=== PATIENT | female | born 1980 | race Hispanic/Latino ===

== ENCOUNTER 2018-05-31 10:46 | Observation (INO) | payer BC, MEDICAID ==
[~2018-05-31] VITALS: Ht 157.5 cm; Wt 97.5 kg
[2018-05-31] MEDS ORDERED: CELESTONE SOLUSPAN 6 MG/ML 5ML VIAL IM SCH (11:28)
[2018-05-31] MEDS ORDERED: PHARMACY COMMUNICATION MISC SCH (11:30)
[2018-05-31] MEDS: LACTATED RINGERS 1000ML 1,000 ML IV SCH ×2 (11:30→12:24)
[2018-05-31] MEDS ORDERED: LACTATED RINGERS 1000ML IV SCH (11:30)
[2018-05-31 11:45] LABS: BASOPHILS % (AUTO) 0.3 % (0.0-5.0); EOSINOPHILS % (AUTO) 0.5 % (0.0-8.0); HEMATOCRIT 32.9 % (36-48); LYMPHOCYTES % (AUTO) 22.2 % (21.0-51.0); MEAN CORPUSCULAR HEMOGLOBIN 29.1 pg (27.0-33.0); MEAN CORPUSCULAR HGB CONC 32.9 g/dL (32.0-36.0); MEAN CORPUSCULAR VOLUME 88.2 fL (79-99); MONOCYTES % (AUTO) 8.7 % (3.0-13.0); NEUTROPHILS % (AUTO) 68.3 % (40.0-77.0); PLATELET COUNT (AUTO) 152 K/uL (130-400); RED BLOOD CELL COUNT(AUTO) 3.73 MIL/uL (4.00-5.50); RED CELL DISTRIBUTION WIDTH 16.3 % (11.0-15.5); WHITE BLOOD COUNT (AUTO) 8.3 K/uL (4.8-10.8)
[2018-05-31 11:50] LABS: CREATININE 0.6 mg/dL (0.5-1.5); POTASSIUM 3.8 mmol/L (3.5-5.1)
[2018-05-31 11:54] LABS: ALBUMIN 2.3 g/dL (3.5-5.0); BILIRUBIN,TOTAL 0.2 mg/dL (0.2-1.0); TOTAL PROTEIN, SERUM 6.5 g/dL (6.0-8.3); URIC ACID 2.1 mg/dL (2.6-7.2)
[2018-05-31 12:01] LABS: INR 0.91 (0.85-1.15); PARTIAL THROMBOPLASTIN TIME 26.4 SEC (26.3-35.5); PROTHROMBIN TIME 9.6 SEC (9.6-11.6)
[2018-05-31 12:02] LABS: APPEARANCE,URINE Clear (CLEAR); BILIRUBIN,URINE Negative (NEGATIVE); COLOR,URINE Yellow (YELLOW); GLUCOSE, URINE (UA) TRACE mg/dL (NEGATIVE); KETONES,URINE Trace mg/dL (NEGATIVE); LEUKOCYTE ESTERASE ,URINE Moderate (NEGATIVE); NITRATE,URINE Negative (NEGATIVE); OCCULT BLOOD,URINE Negative (NEGATIVE); PROTEIN,URINE Trace (NEGATIVE); UROBILINOGEN,URINE 0.2 mg/dL (0.2-1.0)
[2018-05-31 12:20] LABS: BACTERIA,URINE Few /HPF (None Seen); RBC,URINE 0-1 /HPF (0-1)
[2018-05-31 12:21] LABS: MUCUS,URINE Few LPF (None Seen); SQUAMOUS EPITHELIAL CELL,UR Few /HPF (0-2)
[2018-05-31] MEDS ORDERED: TERBUTALINE SULFATE VIAL 1MG/ML SQ ONE (13:14)
[2018-05-31] MEDS ORDERED: TERBUTALINE SULFATE VIAL 1MG/ML SQ SCH (13:15)
== END 2018-05-31 15:21 | disposition home or self-care (01) ==
LOC: LDH 10:46
PROVIDERS: ADMIT Obstetrics & Gynecology; ATTEND Obstetrics & Gynecology
DX: O26.893 Other specified pregnancy related conditions, third trimester (principal); O09.523 Supervision of elderly multigravida, third trimester; R10.9 Unspecified abdominal pain; O99.283 Endocrine, nutritional and metabolic diseases complicating pregnancy, third trimester; E03.9 Hypothyroidism, unspecified; Z3A.34 34 weeks gestation of pregnancy
CPT/HCPCS: 36415; 80053; 81001; 84550; 85025; 85384; 85610; 85730; 96372 ×2; G0378 ×6; J0702; J3105; J7120; 96360; 96361

== ENCOUNTER 2018-06-01 13:07 | Observation (INO) | payer BC, MEDICAID ==
[~2018-06-01] VITALS: Ht 157.5 cm; Wt 97.5 kg
[2018-06-01] MEDS ORDERED: PHARMACY COMMUNICATION MISC SCH (13:15)
[2018-06-01] MEDS ORDERED: CELESTONE SOLUSPAN 6 MG/ML 5ML VIAL IM ONE (14:30)
== END 2018-06-01 13:25 | disposition home or self-care (01) ==
LOC: LDH 13:07
PROVIDERS: ADMIT Obstetrics & Gynecology; ATTEND Obstetrics & Gynecology
DX: O62.9 Abnormality of forces of labor, unspecified (principal); Z3A.34 34 weeks gestation of pregnancy
CPT/HCPCS: 96372; G0378 ×2

== ENCOUNTER 2018-06-04 03:59 | Observation (INO) | payer BC, MEDICAID ==
[~2018-06-04] VITALS: Ht 157.5 cm; Wt 100.7 kg
[2018-06-04 04:35] LABS: APPEARANCE,URINE Clear (CLEAR); BILIRUBIN,URINE Negative (NEGATIVE); COLOR,URINE Yellow (YELLOW); GLUCOSE, URINE (UA) >=1000 mg/dL (NEGATIVE); KETONES,URINE Negative (NEGATIVE); LEUKOCYTE ESTERASE ,URINE Moderate (NEGATIVE); NITRATE,URINE Negative (NEGATIVE); OCCULT BLOOD,URINE Negative (NEGATIVE); PROTEIN,URINE Negative (NEGATIVE)
[2018-06-04 04:46] LABS: AMPHET/METH SCREEN,URINE NEGATIVE (NEGATIVE); BARBITURATE SCREEN, URINE NEGATIVE (NEGATIVE); BENZODIAZEPINES SCREEN,URINE NEGATIVE (NEGATIVE); CANNABINOID SCREEN,URINE NEGATIVE (NEGATIVE); COCAINE SCREEN,URINE NEGATIVE (NEGATIVE); OPIATE SCREEN,URINE NEGATIVE (NEGATIVE); PHENCYCLIDINE SCREEN,URINE NEGATIVE (NEGATIVE)
[2018-06-04 04:53] LABS: RBC,URINE 0-1 /HPF (0-1)
[2018-06-04 04:54] LABS: BACTERIA,URINE Few /HPF (None Seen); SQUAMOUS EPITHELIAL CELL,UR Few /HPF (0-2); YEAST,URINE BUDDING None Seen /HPF (None Seen)
[2018-06-04] MEDS ORDERED: TERBUTALINE SULFATE VIAL 1MG/ML SQ SCH (05:15)
[2018-06-04] MEDS ORDERED: LACTATED RINGERS 1000ML 1,000 ML IV SCH (05:15)
== END 2018-06-04 08:00 | disposition home or self-care (01) ==
LOC: EDH 03:59 → LDH 04:00
PROVIDERS: ADMIT Obstetrics & Gynecology; ATTEND Obstetrics & Gynecology
DX: O62.9 Abnormality of forces of labor, unspecified (principal); O09.523 Supervision of elderly multigravida, third trimester; O26.893 Other specified pregnancy related conditions, third trimester; R11.0 Nausea; Z3A.34 34 weeks gestation of pregnancy; Z79.899 Other long term (current) drug therapy
CPT/HCPCS: 80305; 81001; 96372; 99283; G0378 ×4; J3105

== ENCOUNTER 2018-06-20 11:14 | Inpatient (IN) | payer BC, MEDICAID | END 2018-06-23 12:15 | disposition home or self-care (01) | LOC: LDH 11:14 → WSH 06-21 10:30 | PROC: 10D00Z1 Extraction of Products of Conception, Low, Open Approach (ICD-10-PCS; principal; 2018-06-20 13:44) | DX: O14.24 HELLP syndrome, complicating childbirth (principal); Z37.0 Single live birth; O24.429 Gestational diabetes mellitus in childbirth, unspecified control; O99.284 Endocrine, nutritional and metabolic diseases complicating childbirth; Z3A.37 37 weeks gestation of pregnancy; O09.523 Supervision of elderly multigravida, third trimester; R74.8 Abnormal levels of other serum enzymes ==

== ENCOUNTER 2018-08-25 05:39 | Day surgery (SDC) | payer BC, MEDICAID ==
[2018-08-24 14:00] VITALS: BP 94/54
[2018-08-24 14:16] LABS: BASOPHILS % (AUTO) 0.6 % (0.0-5.0); EOSINOPHILS % (AUTO) 1.6 % (0.0-8.0); HEMATOCRIT 33.5 % (36-48); LYMPHOCYTES % (AUTO) 33.4 % (21.0-51.0); MEAN CORPUSCULAR HEMOGLOBIN 27.9 pg (27.0-33.0); MEAN CORPUSCULAR HGB CONC 32.5 g/dL (32.0-36.0); MEAN CORPUSCULAR VOLUME 85.7 fL (79-99); MONOCYTES % (AUTO) 7.6 % (3.0-13.0); NEUTROPHILS % (AUTO) 56.8 % (40.0-77.0); PLATELET COUNT (AUTO) 217 K/uL (130-400); RED CELL DISTRIBUTION WIDTH 16.9 % (11.0-15.5); WHITE BLOOD COUNT (AUTO) 7.1 K/uL (4.8-10.8)
--- NOTE | 2018-08-24 16:43 | NUR ---
LABS H&H REPORTED TO DR. CERON, NO FURTHER ORDERS GIVEN
[2018-08-25] VITALS (14 sets, daily range): BP systolic 98–125; BP diastolic 47–71
[~2018-08-25] VITALS: Ht 157.5 cm; Wt 81.9 kg
[~2018-08-25 05:39] MED LIST: LEVO25TA54 PO
[2018-08-25] MEDS: CEFAZOLIN SODIUM 1 GM VIAL IVP SCH ×2 (06:30→07:05)
[2018-08-25] MEDS: CALDOLOR 800MG+NS 250ML 250 ML IV SCH ×2 (06:30→08:00)
[2018-08-25] MEDS ORDERED: LIDOCAINE PF 2% 5ML ABBOJECT ONE (06:47)
[2018-08-25] MEDS ORDERED: PROPOFOL 10 MG/ML 20ML VIAL IV ONE (06:47)
[2018-08-25] MEDS ORDERED: MIDAZOLAM HCL 1 MG/ML 2ML VIAL ONE (06:47)
[2018-08-25] MEDS ORDERED: SUCCINYLCHOLINE 200MG/10ML SYR ONE (06:47)
[2018-08-25] MEDS ORDERED: ROCURONIUM 10MG/1ML SYR 10 MG/ML ML ONE (06:47)
[2018-08-25] MEDS ORDERED: FENTANYL CITRATE PF 50 MCG/1 ML 2ML VIAL ONE ×2 (06:48→07:35)
[2018-08-25] MEDS: LACTATED RINGERS 1000ML 1,000 ML IV SCH ×2 (06:56→07:00)
[2018-08-25] MEDS ORDERED: BUPIVACAINE/PF 0.25% 30ML VIAL IJ ONE (07:21)
[2018-08-25] MEDS ORDERED: NEOSTIGMINE 5MG/5ML SYR IV ONE (07:37)
[2018-08-25] MEDS ORDERED: GLYCOPYRROLATE 1 MG/5 ML SYRINGE ONE (07:37)
[2018-08-25] MEDS ORDERED: ONDANSETRON HCL 4 MG/2 ML VIAL ONE (08:47)
[2018-08-25] MEDS ORDERED: METOCLOPRAMIDE 10 MG/2 ML VIAL ONE (08:47)
--- NOTE | 2018-08-25 09:02 | NUR ---
POST-PROCEDURE RECEIVED FROM RR VIA STRETCHER S/P BTL UNDER GA. DROWY, BUT EASILY AROUSED WHEN NAME IS CALLED. CONNECTED TO CONTINUOUS CARDIOPULMONARY MONITORING. STRETCHER IN LOWEST POSITION, CALL LIGHT W/IN REACH, SIDE RAILS UP X2. DENIES PAIN. Addendum: 08/25/18 at 1006 by MINREVA MCCURDY RN RN PEREZ PAD WITH SCANT SEROUSANGINOUS DRAINAGE.
--- NOTE | 2018-08-25 09:40 | NUR ---
ACTIVITY UP TO CHAIR WITH MINIMAL ASSIST X1. C/O NAUSEA ONCE IN CHAIR. PT VOMITED SCANT AMOUNT OF CLEAR LIQUIDS. PT STATES " I FEEL BETTER"
--- NOTE | 2018-08-25 09:47 | NUR ---
EDUCATION DAY PT DISCHARGE INSTRUCTION SHEET, MED REC., AND PT EDUCATION REVIEWED WITH PT AND DAUGHTER. BOTH VERBALIZED UNDERSTANDING. OPPORTUNITY GIVEN TO ASK QUESTIONS. NO QUESTIONS OR CONCERNS VOICED.
--- NOTE | 2018-08-25 09:52 | NUR ---
DISCHARGE DISCHARGED VIA W/C. AWAKE IN NO ACUTE DISTRESS. DENIES NAUSEA/PAIN.
== END 2018-08-25 09:52 | disposition home or self-care (01) ==
LOC: DAH 05:39
PROVIDERS: ATTEND Obstetrics & Gynecology
DX: Z30.2 Encounter for sterilization (principal); Z79.899 Other long term (current) drug therapy; Z98.890 Other specified postprocedural states
CPT/HCPCS: 36415; 49322; 58670; 84703; 85025; 86850; 86900; 86901; A4351; C1769 ×2; G0168; J0330; J0690; J1741; J2001; J2250; J2405; J2704; J2710; J2765; J3010 ×2; J3490 ×2; J7120 ×2